=== PATIENT | female | born 1980 | race Caucasian/White ===

== ENCOUNTER 2020-10-20 19:31 | Outpatient (CLI) | payer BC | END 2020-10-20 19:32 | disposition home or self-care (01) | LOC: COV 19:31 | PROVIDERS: ATTEND Family Medicine | DX: R50.9 Fever, unspecified (principal); R05 Cough; M79.10 Myalgia, unspecified site; R53.83 Other fatigue; R07.0 Pain in throat; R19.7 Diarrhea, unspecified; R09.81 Nasal congestion; J34.89 Other specified disorders of nose and nasal sinuses; Z20.822 Contact with and (suspected) exposure to COVID-19 ==

== ENCOUNTER 2021-01-08 17:36 | Outpatient (CLI) | payer BC ==
[2021-01-08 20:10] LABS: RESPIRATORY SYNCYTIAL VIRUS POSITIVE (Negative)
== END 2021-01-08 23:59 | disposition home or self-care (01) ==
LOC: LAB.S 17:36
PROVIDERS: ATTEND Emergency Medicine
DX: R50.9 Fever, unspecified (principal); Z20.822 Contact with and (suspected) exposure to COVID-19
CPT/HCPCS: 87070; 87275; 87276; 87280

== ENCOUNTER 2021-01-10 16:11 | Emergency (ER) | payer BC ==
--- NOTE | 2021-01-10 17:21 | ED Physician Documentation ---
History of Present Illness - Stated complaint Stated Complaint: purple toe - Chief complaint Chief Complaint: Ext Problem - Additonal information Additional information: 32-year-old female presents emergency department for evaluation of bruising at her left great toe area. She reports that 3 days ago she developed sudden numbness and tingling in the left great toe. It then turned white and subsequently she developed a bruise in this area that has slowly gotten larger. She did go to the emergency department in [place] on Monday evening. There she had a negative chest x-ray reportedly had a D-dimer obtained that was negative. She was told that the symptoms did not improve to then return to the emergency department. She reports persistent numbness in this toe. No fevers. Review of Systems Constitutional: denies: Fever, Chills Eyes: reports: Reviewed and negative Ears: reports: Reviewed and negative Nose: reports: Reviewed and negative Throat: reports: Reviewed and negative Cardiac: reports: Reviewed and negative Respiratory: reports: Reviewed and negative GI: reports: Reviewed and negative : reports: Reviewed and negative Skin: reports: Other (Bruising left great toe) Musculoskeletal: reports: Reviewed and negative PD PAST MEDICAL HISTORY - Allergies Allergies/Adverse Reactions: Allergies Allergy/AdvReac Type Severity Reaction Status Date / Time No Known Drug Allergies Allergy Verified 01/10/21 16:39 - Social History Does the pt smoke?: No Smoking Status: Never smoker PD ED PE EXPANDED - General General: Alert, No acute distress - Extremities Extremities: Left leg (No foot pain no calf swelling no calf tenderness.), Left toe(s) (Extensive bruising of the left great toe medially. 2+ DP and PT pulse. Warm foot. Brisk cap refill is present.). No: Right calf TTP/cord, Left calf TTP/cord Results - Vitals Vitals: Vital Signs - 24 hr 01/10/21 16:32 Temperature 36.3 C L Heart Rate 88 Respiratory 16 Rate Blood Pressure 152/103 H O2 Saturation 98 Oxygen O2 Source Room air - Rads (name of study) Left leg DVT US Radiology: Final report received (Negative for acute venous thrombus in the left leg.) PD MEDICAL DECISION MAKING - ED course Complexity details: reviewed results, re-evaluated patient, d/w patient ED course: 32-year-old female presents emergency department for evaluation of 4 to 5 days left great toe ecchymosis. She denies any falls or trauma and it is not painful though she does have some numbness in the toe. She was seen at [facility] on Monday night had unremarkable chest x-ray as well as a D-dimer but the bruising has gotten larger thus she presents to the emergency department today. An ultrasound was performed of the left leg that did not show any deep vein thrombus. The patient has a warm foot with good pulses in both the DP and posterior tibial region. She also has brisk cap refill. Acute acute arterial occlusion is not suspected at this time. The cause of the bruising is not clear at this time though I have encouraged patient to gently watch and wait as I expect that the bruise will simply heraclio over the next 7 to 10 days. Emergent return precautions were discussed for worsening symptoms. Departure - Departure Disposition: 01 Home, Self Care Clinical Impression: Superficial bruising of toe Condition: Stable Record reviewed to determine appropriate education?: Yes Comments: Debra you were seen in the ER today for an increase in the size of the bruise on your left great toe. You reported that the x-ray and the D-dimer completed at [facility] for the weekend was normal. The pulses in your foot are normal. We did do an ultrasound of the leg that did not show a blood clot. It is not clear what the cause of this bruise is however I expect that it is simply going to get better with time and go away. If you develop more extensive bruising of the foot, it becomes painful, hot, swollen or you have any red streaking, fevers or concerns of infection please re turn immediately to the ER for a second look.
--- NOTE | 2021-01-10 19:15 | Ultrasound Report ---
PROCEDURE: Duplex Ext Veins Left INDICATIONS: bruising left toe; ? clot TECHNIQUE: Real-time imaging, as well as color and pulse Doppler interrogation, were performed of the lower extr emity deep veins from the inguinal ligament to the popliteal fossa. COMPARISON: None. FINDINGS: The deep veins are normally compressible, and free of intraluminal thrombus. Color and pu lse Doppler demonstrate normal phasic intraluminal flow. There is normal augmentation response to di stal compression maneuver. IMPRESSION: No deep venous thrombosis. Reviewed by: Jaylyn Marley MD on 01/10/2021 7:13 PM PDT Approved by: Jaylyn Malrey MD on 01/10/2021 7:13 PM PDT Station ID: [id number]
[2021-01-10 19:36] VITALS: BP 147/101
== END 2021-01-10 19:33 | disposition home or self-care (01) ==
LOC: ED 16:11
DX: S90.112A Contusion of left great toe without damage to nail, initial encounter (principal); X58.XXXA Exposure to other specified factors, initial encounter; R20.0 Anesthesia of skin
CPT/HCPCS: 99282; 99283

== ENCOUNTER 2021-01-13 11:31 | Emergency (ER) | payer BC ==
--- NOTE | 2021-01-13 12:03 | ED Physician Documentation ---
PD HPI FOCAL NEURO - Stated complaint Stated Complaint: WEAKNESS/LT ARM/LEG WEAKNESS - History obtained from History obtained from: Patient - Additional information Additional information: L arm and leg weakness starting at 0930 this morning. Assoc with tingling. Some back discomfort with it. Admits to significant anxiety. She has been Having left-sided headaches lately. Recent dx RSV (5 days ago), neg for covid same date. Per her there is 0 possibility of . PD PAST MEDICAL HISTORY - Allergies Allergies/Adverse Reactions: Allergies Allergy/AdvReac Type Severity Reaction Status Date / Time No Known Drug Allergies Allergy Verified 01/13/21 12:05 - Social History Does the pt smoke?: No Smoking Status: Never smoker PD ED PE NORMAL - Vitals Vital signs reviewed: Yes - General General: Alert and oriented X 3, No acute distress - HEENT HEENT: PERRL, EOMI - Neck Neck: Supple, no meningeal sign, No bony TTP - Cardiac Cardiac: RRR, No murmur - Respiratory Respiratory: No respiratory distress, Clear bilaterally - Abdomen Abdomen: Normal bowel sounds, Soft, Non tender - Back Back: No CVA TTP, No spinal TTP - Derm Derm: Normal color, Warm and dry - Neuro Neuro: Alert and oriented X 3, Normal speech - Psych Psych: Normal mood, Normal affect NIHSS - Time Time: 12:12 - Level of Consciousness Level of consciousness: (0) Alert, Keenly responsive LOC Questions: (0) Answers both Q's correct LOC Commands: (0) Performs both correctly - Gaze Best Gaze: (0) Normal - Visual Visual: (0) No loss - Facial Palsy Facial Palsy: (0) Normal, symmetrical movement - Motor Arms (both separate) Motor Arm (right): (0) No drift Motor Arm (left): (0) No drift - Motor Legs (both separate) Motor Leg (right): (0) No drift Motor Leg (left): (0) No drift - Limb Ataxia Limb Ataxia: (0) Absent - Sensory Sensory: (0) Normal - Best Language Best Language: (0) No aphasia - Dysarthria Dysarthria: (0) Normal - Extinction and Inattention (formally neg Extinction and inattention: (0) No abnormality - Total Score/Results Total Score/Result: 0 Results - Vitals Vitals: Vital Signs - 24 hr 1001/13/21 01/13/21 11:45 12:40 14:20 Temperature 37.2 C Heart Rate 100 90 75 Respiratory 16 10 L 8 L Rate Blood Pressure 138/112 H 144/104 H 146/99 H O2 Saturation 99 100 98 Oxygen O2 Source Room air - EKG (time done) 1228 Rate: Rate (enter#) (84) Rhythm: NSR [place]: Normal Intervals: Normal RI QRS: Normal Ischemia: Normal ST segments - Labs Labs: Laboratory Tests 01/13/21 01/13/21 01/13/21 12:38 13:36 13:36 WBC 5.3 RBC 4.08 L Hgb 13.5 Hct 38.9 MCV 95.3 MCH 33.1 H MCHC 34.7 RDW 11.2 L Plt Count 247 MPV 9.9 Neut # (Auto) 2.9 Lymph # (Auto) 1.7 Scott # (Auto) 0.3 Eos # (Auto) 0.2 Baso # (Auto) 0.1 Absolute Nucleated RBC 0.00 Nucleated RBC % 0.0 PT 12.0 INR 1.1 Sodium Potassium Chloride Carbon Dioxide Anion Gap BUN Creatinine Estimated GFR (MDRD) Glucose POC Whole Bld Glucose 81 Calcium Urine Color Urine Clarity Urine pH Ur Specific Oil Trough Urine Protein Urine Glucose (UA) Urine Ketones Urine Occult Blood Urine Nitrite Urine Bilirubin Urine Urobilinogen Ur Leukocyte Esterase Ur Microscopic Review Urine Culture Comments Urine HCG, Qual 01/13/21 01/13/21 13:36 13:43 WBC RBC Hgb Hct MCV MCH MCHC RDW Plt Count MPV Neut # (Auto) Lymph # (Auto) Scott # (Auto) Eos # (Auto) Baso # (Auto) Absolute Nucleated RBC Nucleated RBC % PT INR Sodium 135 Potassium 3.6 Chloride 99 L Carbon Dioxide 27 Anion Gap 9.0 BUN 12 Creatinine 0.5 Estimated GFR (MDRD) 138 Glucose 118 H POC Whole Bld Glucose Calcium 9.1 Urine Color YELLOW Urine Clarity CLEAR Urine pH 6.0 Ur Specific Oil Trough <=1.005 Urine Protein NEGATIVE Urine Glucose (UA) NEGATIVE Urine Ketones NEGATIVE Urine Occult Blood NEGATIVE Urine Nitrite NEGATIVE Urine Bilirubin NEGATIVE Urine Urobilinogen 0.2 (NORMAL) Ur Leukocyte Esterase NEGATIVE Ur Microscopic Review NOT INDICATED Urine Culture Comments NOT INDICATED Urine HCG, Qual NEGATIVE - Rads (name of study) CT angiography of the head and neck was negative with the exception of right-sided maxillary sinus disease Radiology: EMP read contemporaneously PD MEDICAL DECISION MAKING - ED course ED course: 40-year-old woman presents with strokelike symptoms starting abruptly at 930 this morning. Given her young age, stroke is unlikely and she is quite anxious. She scores a 0 on the NIH stroke scale, but that said given the worry for progression she will go straight to CT and will talk with telestroke neurology about her case. 40-year-old woman presents with strokelike symptoms within the window for consideration for thrombolytic therapy. That said her NIH stroke scale is 0. Discussed case by phone with Dr. Peters, telestroke neurologist after initial CT and recommends against TPA but loading with antiplatelet therapy and MRI. Departure - Departure Disposition: 01 Home, Self Care Clinical Impression: Stroke-like symptoms Condition: Good Record reviewed to determine appropriate education?: Yes Comments: As discussed CT and MRI imaging of the head was negative for evidence of stroke. Recheck blood pressure in about 2 weeks when feeling better. Return for new or worsening symptoms. Baby aspirin a day for 2 to 3 months.
[2021-01-13] MEDS ORDERED: IOVERSOL 320 100 ML VIAL IVP ONE ×2 (12:11→13:46)
--- NOTE | 2021-01-13 12:29 | CT Report ---
PROCEDURE: Head W/O Stroke Protocol INDICATIONS: CVA sx TECHNIQUE: Noncontrast 4.5 mm thick angled axial sections acquired from the foramen magnum to the vertex, with c oronal reformats. For radiation dose reduction, the following was used: automated exposure control, adjustment of mA and/or kV according to patient size. COMPARISON: FINDINGS: BRAIN PARENCHYMA: Normal parenchymal density. No acute cortical based (large territory) infarction, i ntracranial hemorrhage, mass or mass effect, or abnormal fluid collection. The density in the larger dural venous sinuses is grossly normal. VENTRICLES: Normal in size, shape, and position. BONES/SINUSES: The skull base and calvarium demonstrate no acute abnormality. Small air-fluid level i n the right maxillary sinus. The mastoid air cells are well aerated. IMPRESSION: 1.No acute intracranial abnormality. Reviewed by: Shayan Bolivar MD on 01/13/2021 12:28 PM PDT Approved by: Shayan Bolivar MD on 01/13/2021 12:28 PM PDT Station ID: [id number]
[2021-01-13] MEDS ORDERED: ASPIRIN 325 MG TABLET PO STA (12:34)
--- NOTE | 2021-01-13 12:40 | CT Report ---
PROCEDURE: ANGIO NECK W INDICATIONS: CVA symptoms CONTRAST: IV CONTRAST: Optiray 320 ml: 80 PO CONTRAST: *NO PO CONTRAST TECHNIQUE: After the administration of intravenous contrast, 1.5 mm axial sections acquired from the aortic arch to the [place] of [place]. Coronal 3-D maximum intensity projection (MIP) and/or volume rendering ref ormats were then performed. For radiation dose reduction, the following was used: automated exposur e control, adjustment of mA and/or kV according to patient size. COMPARISON: FINDINGS: Image quality: Excellent. Carotid system: The great vessels demonstrate a conventional anatomy as they arise from the aortic a [facility]. The origins of the common carotid arteries appear patent. The common carotid arteries demonstr ate normal calibers and courses. The bifurcation regions appear normal bilaterally. The internal ca rotid arteries demonstrate normal caliber and course. Posterior circulation: The origins of the vertebral arteries appear patent. The more superior porti ons of the vertebral arteries demonstrate normal course and caliber. They join to form a normal appe aring basilar artery. Soft tissues: Visualized neck soft tissues demonstrate no suspicious abnormalities. Bilateral low-de nsity thyroid nodules, largest measuring 7 mm. Bones: No suspicious bony lesions. Visualized cervical spine appears normally aligned. iMPRESSION: Major cervical arterial vasculature appears widely patent with no evidence of hemodynamically signifi cant stenosis, dissection, or other significant arterial vascular abnormality. Bilateral thyroid nodules. Nonemergent outpatient thyroid ultrasound recommended for further evaluati on. The estimate of stenosis included in the report of the imaging study was calculated using the NASCET method Reviewed by: Harman Stanford MD on 01/13/2021 12:38 PM PDT Approved by: Harman Stanford MD on 01/13/2021 12:38 PM PDT Station ID: [id number]
--- NOTE | 2021-01-13 12:43 | CT Report ---
PROCEDURE: ANGIO HEAD W/WO INDICATIONS: CVA sx CONTRAST: IV CONTRAST: Optiray 320 ml: 80 PO CONTRAST: *NO PO CONTRAST TECHNIQUE: Precontrast 4.5 mm thick angled axial sections acquired from the foramen magnum to the vertex. Afte r the administration of intravenous contrast, 1 mm thick sections acquired through the [place] of [place] is. Postcontrast 4.5 mm thick sections then re-acquired from the foramen magnum to the vertex. 3-di mensional hugdnrn-uttsjxgqg-vjrqvneliu (MIP) and/or volume rendering reformats were acquired of the c entral intracranial vasculature. For radiation dose reduction, the following was used: automated ex posure control, adjustment of mA and/or kV according to patient size. COMPARISON: Correlation is made with the accompanying noncontrast head CT and neck CT angiogram, 01/13/2021. FINDINGS: Image quality: There is streak artifact seen through the skull base. Anterior circulation: Intracranial internal carotid arteries are normal in size and flow. The flow within the paired anterior cerebral arteries is normal and symmetric. The flow within the middle cer ebral arteries is normal and symmetric. The anterior communicating artery is seen. No aneurysms are seen. Posterior circulation: Visualized portions of the vertebral arteries demonstrate normal caliber, and join to form a normal appearing basilar artery. Flow within the posterior cerebral arteries is norm al and symmetric. No aneurysms are seen. CSF spaces: Ventricles are normal in size and shape. Basal cisterns are patent. No extra-axial flu id collections. Brain: No midline shift. No intracranial bleeds or masses. Vargas-white matter interface appears int act. Skull and face: Moderate mucosal thickening is seen within the right maxillary sinus, with an air-flu id level seen. Milder mucosal thickening is seen elsewhere within the paranasal sinuses. No significa nt abnormal fluid can be seen within the mastoid air cells or within the middle ear cavities. Sinus es: Visualized sinuses and mastoids are clear. IMPRESSION: No significant intracranial arterial abnormalities are seen. No masses or abnormal enhancement can be seen. If there is strong clinical concern for a stroke, please consider a dedicated brain MRI for further e valuation (assuming that there is no contraindication to MRI). Paranasal sinus disease incidentally noted, which is worst within the right maxillary sinus. Reviewed by: Francesco Calixto MD on 01/13/2021 11:41 AM REYNOLD Approved by: Francesco Calixto MD on 01/13/2021 11:41 AM REYNOLD Station ID: [id number]
[2021-01-13 13:44] LABS: BASOPHILS # (AUTO) 0.1 10^3/uL (0.0-0.1); BASOPHILS % (AUTO) 1.1 %; EOSINOPHILS # (AUTO) 0.2 10^3/uL (0.0-0.7); EOSINOPHILS % (AUTO) 4.5 %; HCT - HEMATOCRIT 38.9 % (37.0-47.0); HGB - HEMOGLOBIN 13.5 g/dL (12.0-16.0); LYMPHOCYTES # (AUTO) 1.7 10^3/uL (1.5-3.5); LYMPHOCYTES % (AUTO) 32.5 %; MEAN CORPUSCULAR HEMOGLOBIN 33.1 pg (27.0-31.0); MEAN CORPUSCULAR HGB CONC 34.7 g/dL (32.0-36.0); MEAN CORPUSCULAR VOLUME 95.3 fL (81.0-99.0); MEAN PLATELET VOLUME 9.9 fL (7.9-10.8); MONOCYTES # (AUTO) 0.3 10^3/uL (0.0-1.0); MONOCYTES % (AUTO) 6.4 %; NEUTROPHILS # (AUTO) 2.9 10^3/uL (1.5-6.6); NEUTROPHILS % (AUTO) 55.3 %; PLT - PLATELET COUNT 247 10^3/uL (130-450); RED BLOOD COUNT 4.08 10^6/uL (4.20-5.40); RED CELL DISTRIBUTION WIDTH 11.2 % (12.0-15.0); WHITE BLOOD COUNT 5.3 x10^3/uL (4.8-10.8)
[2021-01-13 13:49] LABS: BILIRUBIN,URINE NEGATIVE (NEGATIVE); GLUCOSE, URINE (UA) NEGATIVE (NEGATIVE); KETONES,URINE (UA) NEGATIVE (NEGATIVE); LEUKOCYTE ESTERASE, URINE NEGATIVE (NEGATIVE); NITRITE,URINE NEGATIVE (NEGATIVE); OCCULT BLOOD,URINE NEGATIVE (NEGATIVE); PROTEIN,URINE NEGATIVE (NEGATIVE); UROBILINOGEN,URINE 0.2 (NORMAL) E.U./dL (NORMAL)
[2021-01-13 13:50] LABS: CLARITY,URINE CLEAR (CLEAR); HCG UR QUAL NEGATIVE
[2021-01-13 13:56] LABS: INR 1.1 (0.8-1.2)
[2021-01-13 13:57] LABS: CALCIUM 9.1 mg/dL (8.5-10.3); CREATININE 0.5 mg/dL (0.4-1.0); POTASSIUM 3.6 mmol/L (3.5-5.0)
[2021-01-13 14:20] VITALS: BP 146/99
--- NOTE | 2021-01-13 16:42 | MRI Report ---
PROCEDURE: Brain W/O INDICATIONS: Stroke symptoms TECHNIQUE: Noncontrast axial T1 spin echo, axial T2 fast spin echo, sagittal and axial FLAIR, coronal T2 fast sp in echo, axial gradient echo, axial diffusion and ADC through the brain. COMPARISON: CT of the head and CT angiogram of the head obtained today. FINDINGS: No restricted diffusion to indicate recent ischemia. The major intracranial vascular flow-related sig nal voids are maintained. Midline structures are normal in configuration. No brain parenchymal FLAIR signal abnormality or abnormal intracranial susceptibility. No findings of mass effect or midline chelle ft. The ventricular system and basilar cisterns are normal in caliber. There are air-fluid levels within the maxillary sinuses in addition to mild to moderate mucosal thick ening. Mild mucosal thickening is present in the sphenoid sinuses and anterior ethmoid air cells as w ell as the right frontal sinus also. Small mastoid air cell effusions. Normal marrow signal in the calvarium and skull base. No gross orbital abnormality. IMPRESSION: No findings of recent ischemia or other acute intracranial inability. Findings suggestive of acute bilateral maxillary sinusitis and scattered inflammatory changes through out the paranasal sinuses Reviewed by: Harman Stanford MD on 01/13/2021 4:41 PM PDT Approved by: Harman Stanford MD on 01/13/2021 4:41 PM PDT Station ID: [id number]
== END 2021-01-13 17:25 | disposition home or self-care (01) ==
LOC: ED 11:31
DX: M62.81 Muscle weakness (generalized) (principal); J32.0 Chronic maxillary sinusitis; R51.9 Headache, unspecified; R29.90 Unspecified symptoms and signs involving the nervous system
CPT/HCPCS: 36415; 70450; 70496; 70498; 70551; 80048; 81003; 81025; 85025; 85610; 93005; 99281; 99284; A9270; Q9967; 81001; 87086

== ENCOUNTER 2021-01-20 08:00 | Outpatient (CLI) | payer BC ==
--- NOTE | 2021-01-20 15:11 | XRAY Report ---
PROCEDURE: Chest 2 View X-Ray INDICATIONS: COUGH TECHNIQUE: 2 view(s) of the chest. COMPARISON: None. FINDINGS: Surgical changes and devices: None. Lungs and pleura: No pleural effusions or pneumothorax. Lungs are clear. Mediastinum: Mediastinal contours are normal. Heart size is normal. Bones and chest wall: No suspicious bony abnormalities. Soft tissues appear unremarkable. IMPRESSION: No acute cardiopulmonary abnormality. Reviewed by: Shayan Bolivar MD on 01/20/2021 3:10 PM PDT Approved by: Shayan Bolivar MD on 01/20/2021 3:10 PM PDT Station ID: [id number]
== END 2021-01-20 23:59 | disposition home or self-care (01) ==
LOC: DI.S 08:00
PROVIDERS: ATTEND Emergency Medicine
DX: R05.9 Cough, unspecified (principal)

== ENCOUNTER 2022-11-11 09:40 | Outpatient (CLI) | payer BC ==
[2022-11-11 14:57] LABS: BASOPHILS # (AUTO) 0.1 10^3/uL (0.0-0.1); BASOPHILS % (AUTO) 1.4 %; EOSINOPHILS # (AUTO) 0.3 10^3/uL (0.0-0.7); EOSINOPHILS % (AUTO) 4.1 %; HCT - HEMATOCRIT 40.2 % (37.0-47.0); HGB - HEMOGLOBIN 13.7 g/dL (12.0-16.0); LYMPHOCYTES # (AUTO) 1.9 10^3/uL (1.5-3.5); LYMPHOCYTES % (AUTO) 29.2 %; MEAN CORPUSCULAR HEMOGLOBIN 32.5 pg (27.0-31.0); MEAN CORPUSCULAR HGB CONC 34.1 g/dL (32.0-36.0); MEAN CORPUSCULAR VOLUME 95.5 fL (81.0-99.0); MEAN PLATELET VOLUME 10.9 fL (7.9-10.8); MONOCYTES # (AUTO) 0.5 10^3/uL (0.0-1.0); MONOCYTES % (AUTO) 7.3 %; NEUTROPHILS # (AUTO) 3.7 10^3/uL (1.5-6.6); NEUTROPHILS % (AUTO) 57.8 %; PLT - PLATELET COUNT 283 10^3/uL (130-450); RED BLOOD COUNT 4.21 10^6/uL (4.20-5.40); RED CELL DISTRIBUTION WIDTH 11.9 % (12.0-15.0); WHITE BLOOD COUNT 6.3 x10^3/uL (4.8-10.8)
[2022-11-11 15:12] LABS: ALBUMIN 4.7 g/dL (3.2-5.5); ALBUMIN/GLOBULIN RATIO 1.7 (1.0-2.2); BILIRUBIN,TOTAL 0.7 mg/dL (0.2-1.0); CALCIUM 9.6 mg/dL (8.5-10.3); CREATININE 0.7 mg/dL (0.6-1.3); POTASSIUM 4.2 mmol/L (3.5-4.5); TOTAL PROTEIN 7.4 g/dL (6.4-8.9)
== END 2022-11-11 09:41 | disposition home or self-care (01) ==
LOC: LAB.S 09:40
PROVIDERS: ATTEND Emergency Medicine
DX: R10.11 Right upper quadrant pain (principal)
CPT/HCPCS: 36415; 80053; 83690; 85025

== ENCOUNTER 2023-01-23 14:00 | Outpatient (CLI) | payer BC ==
--- NOTE | 2023-01-24 09:37 | Mammography Report ---
BILATERAL DIGITAL SCREENING MAMMOGRAM 3D/2D WITH AUGMENTATION: 01/23/2023 CLINICAL: Routine screening. No prior exams were available for comparison. Both breasts are heterogeneously dense, which may obscure small masses (category c / 51-75% glandular tissue). Bilateral breast implants are present. No significant masses, calcifications, or other findings are seen in either breast. IMPRESSION: NEGATIVE There is no mammographic evidence of malignancy. A 1 year screening mammogram is recommended. Based on the Tyrer Cuzick model (a risk assessment model) the patients lifetime risk is 15.9% and he r 10 year risk is 2.0%. According to the ACR, ACS, and NCCN guidelines, an annual breast MRI exam candis ng with mammogram is recommended if the patients lifetime risk is 20% or greater. This exam was interpreted at Station ID: [id number]. NOTE: For mammograms, a report in lay terms will be sent to the patient. Approximately 15% of breast malignancies will not be visualized mammographically. In the management of a palpable breast mass, a negative mammogram must not discourage biopsy of a clinically suspicious lesion. Electronically Signed By: Angela olvera/beverly:01/23/2023 17:23:15 letter sent: No_Letter ACR BI-RADS Category 1: Negative 3341F PARENCHYMAL PATTERN: (D) - The breast(s) demonstrate(s) heterogeneously dense fibroglandular parbaly kandi. BI-RADS CATEGORY: (1) - 1 Mammogram [id number] 1 year screening LATERALITY: (B)
== END 2023-01-23 14:01 | disposition home or self-care (01) ==
LOC: DI.S 14:00
PROVIDERS: ATTEND Registered Nurse
DX: Z12.31 Encounter for screening mammogram for malignant neoplasm of breast (principal); R92.333 Mammographic heterogeneous density, bilateral breasts; Z98.82 Breast implant status